=== PATIENT | male | born 1990 | race Caucasian/White ===

== ENCOUNTER 2016-12-27 13:52 | Emergency (ER) | payer OTHER ==
[2016-12-27] MEDS ORDERED: diphenhydrAMINE 50 MG/1 ML VIAL IVP ONE (14:12)
[2016-12-27] MEDS ORDERED: NORMAL SALINE 10 ML SYRINGE FLUSH IVP PRN (14:12)
[2016-12-27] MEDS ORDERED: Sodium Chloride 0.9% 1,000 ML PRIMARY IV ONE (14:12)
[2016-12-27] MEDS ORDERED: Metoclopramide Inj 10 MG/2 ML VIAL IVP ONE (14:12)
[2016-12-27] MEDS ORDERED: KETOROLAC 30 MG/1 ML VIAL IVP ONE (14:12)
[2016-12-27 14:18] VITALS: RESP 16; TEMP 97.1
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
== END 2016-12-27 16:15 | disposition home or self-care (01) ==
LOC: ER 13:52
DX: G43.909 Migraine, unspecified, not intractable, without status migrainosus (principal); R11.10 Vomiting, unspecified
CPT/HCPCS: 70450; 96361; 96374; 96375; 99283 ×2; J1200; J1885; J2765; J7030